=== PATIENT | female | born 1965 | race Caucasian/White ===

== ENCOUNTER → 2023-02-20 08:01 | Outpatient (REF) | payer OTHER, SELFPAY ==
--- NOTE | 2023-02-20 08:07 | CA_ITS ---
Transthoracic Echocardiogram Patient (Last, First, Middle): Nataly Pierson, Gender: Female Date of : 1965 Age: 57 Procedure Date: 02/20/2023 Procedure Type: Transthoracic Echocardiogram Location: [facility] Height: 165.1 cm Weight: 56.25 kg BSA: 1.61 m2 Heart Rate: bpm BP: 110 / 68 mmHg Superintendent Meters: FELISA Referring MD: Tello Dennison MD Symptoms: Chest pain, Shortness of breath Study Quality: Fair ECG Rhythm: Sinus Conclusions: - The left ventricular systolic function is normal. The calculated ejection fraction is 68% by biplane method. - No obvious valvular pathology seen on this study. Findings Left Ventricle Normal left ventricular cavity size. There is normal left ventricular wall thickness. The left ventricular systolic function is normal. The calculated ejection fraction is 68% by biplane method. There is no evidence of regional wall motion abnormalities. Diastolic function is normal for age. LV peak GLS -20.9% (normal). Right Ventricle Normal right ventricular cavity size and systolic function. Atria Both atria are normal in size. Aortic Valve There is a normal trileaflet aortic valve. There is no aortic valve stenosis. There is no aortic valve regurgitation. Mitral Valve The mitral valve appears normal. There is no mitral valve regurgitation. There is no mitral valve stenosis. Pulmonic Valve The pulmonic valve is likely normal. Tricuspid Valve There is mild tricuspid valve regurgitation. There is no evidence of pulmonary hypertension. Great Vessels The asc aorta is normal in size. Venous The inferior vena cava is mildly dilated and collapses greater than 50% with inspiration. Pericardium/Pleural There is no evidence of pericardial effusion. Prior Study Comparison No significant change compared to prior study dated: 04/12/2020. Recommendations, Care & Conclusions No obvious valvular pathology seen on this study. Measurements 2D Linear Measurements IVSd: 0.80 0.6-0.9/0.6-1.0 cm LVIDd: 4.00 3.9-5.3/4.2-5.9 cm LVIDd Index: 2.48 2.4-3.2/2.2-3.1 cm/m2 LVIDs: 2.36 2.0-3.6 cm LVPWd: 0.88 0.7-1.1 cm LA Diam: 2.70 2.7-3.8/3.0-4.0 cm LAIDs Index: 1.68 1.5-2.3 cm/m2 LV Mass: 124.52 67-162/88-224 g LV Mass Index: 77.34 43-95/49-115 g/m2 LVOT Diam: 1.90 3.0+(-)1.3 cm 2D Systolic Function EF 4C: 65.50 >55% EF 2C: 71.00 >55% EF BiP: 68.20 >55% Mitral Valve MV Pk E: 0.87 MV PK A: 0.62 MV Decel Time: 225.00 E/A: 1.40 E'Lateral: 14.10 E'Medial: 11.30 E/E' Med: 7.70 E/E' Lat: 6.20 PHT: 66.00 MVA PHT: 3.33 Decel [place]: 3.86 Aortic Valve AoV Pk Yonny: 1.47 AoV Mn Yonny: 0.97 AoV VTI: 0.34 AoV Pk Grad: 9.00 Aov Mn Grad: 4.00 MARK Cont.VTI: 2.59 LVOT LVOT Pk Yonny: 1.33 LVOT Mn Yonny: 0.89 LVOT VTI: 0.31 LVOT Pk Grad: 7.00 LVOT Mn Grad: 4.00 LVOT Diam: 1.90 LVOT Area: 2.84 Diastolic Function MV Pk E: 0.87 MV Pk A: 0.62 E/A: 1.40 E'Medial: 11.30 E/E' Med: 7.70 E' Laterial: 14.10 E/E' Lat: 6.20 Right Ventricle TAPSE (mm): 27.70 TVS' Yonny: 14.90 Tricuspid Valve TR Pk Yonny: 2.24 TR Pk Grad: 20.00 RA Press: 8.00 RVSP: 28.00 Great Vessels Aorta Sinus of Valsalva: 2.88 2.0-3.[address] [place]: 2.40 1.7-3.4 cm Ao Asc: 2.90 2.1-3.4 cm Ao Arch: 2.50 Updated in Other Vendor System with Status of Final Sherman Heramn MD electronically signed on 02/20/2023 1:55:28 PM with status of Final
== END ==
LOC: HO.CARD 08:01
PROVIDERS: PCP Family Medicine; Visit Provider Family Medicine
DX: R07.9 Chest pain, unspecified (principal); R06.02 Shortness of breath
CPT/HCPCS: 93306